=== PATIENT | female | born 1960 | race Caucasian/White ===

== ENCOUNTER 2020-02-05 05:42 | Outpatient (RCR) | payer BC ==
[~2020-02-05] VITALS: Ht 154 cm; Wt 71.8 kg
[2020-02-05] MEDS ORDERED: CETI10TA17 PO (11:33)
[2020-02-05] MEDS ORDERED: FISH1CAP15 PO (11:33)
[2020-02-05] MEDS ORDERED: CLC600T PO (11:33)
[2020-02-05] MEDS ORDERED: MULT-1136 PO (11:33)
[2020-02-05] MEDS ORDERED: FLUT9.9S16 NS (11:33)
[2020-02-05] MEDS ORDERED: GLUC-116 PO (11:33)
[2020-02-05] MEDS ORDERED: UBID100C17 PO (11:33)
[2020-02-05] MEDS ORDERED: LEVO88TA54 PO (11:33)
[2020-02-05] MEDS ORDERED: CHOL500050 PO (11:33)
== END 2020-02-05 11:42 | disposition home or self-care (01) ==
LOC: PREOP 05:42
PROVIDERS: ATTEND Surgery
DX: Z01.818 Encounter for other preprocedural examination (principal)